=== PATIENT | female | born 1980 | race Caucasian/White ===

== ENCOUNTER 2020-10-29 11:47 | Emergency (ER) | payer OTHER ==
[~2020-10-29] VITALS: Ht 162.6 cm; Wt 90.7 kg
--- NOTE | 2020-10-29 12:25 | NUR ---
SALINE LOCK ESTABLISHED, BLOOD DRAWN AND PICKED UP BY LAB
[2020-10-29] MEDS ORDERED: CYCL5TAB PO (12:27)
[2020-10-29] MEDS ORDERED: TOPI200T PO (12:27)
[2020-10-29] MEDS ORDERED: SPIR50TA PO (12:27)
[2020-10-29] MEDS ORDERED: TRAM50TA2 PO (12:27)
[2020-10-29] MEDS ORDERED: GABA600T12 PO (12:27)
[2020-10-29] MEDS ORDERED: TRAZ-257 PO (12:27)
[2020-10-29] MEDS ORDERED: ONDA4TAB5 PO (12:27)
[2020-10-29] MEDS ORDERED: PROCHLORPERAZINE EDISYLATE 10 MG/2 ML VIAL ONE (12:33)
[2020-10-29] MEDS ORDERED: diphenhydrAMINE HCL 50 MG/ML VIAL ONE ×2 (12:33→13:14)
[2020-10-29 12:36] LABS: BASOPHILS # (AUTO) 0.1 K/uL (0.0-0.2); EOSINOPHILS % (AUTO) 1.2 % (0.0-6.0); HEMATOCRIT 41 % (33-45); HEMOGLOBIN 13.3 g/dL (11.5-14.8); LYMPHOCYTES # (AUTO) 2.4 K/uL (0.8-4.8); LYMPHOCYTES % (AUTO) 26.2 % (20.0-44.0); MEAN CORPUSCULAR HGB CONC 33 g/dl (31.0-36.0); MEAN CORPUSCULAR VOLUME 89 fL (82-100); MONOCYTES # (AUTO) 0.5 K/uL (0.1-1.30); MONOCYTES % (AUTO) 5.5 % (2.0-12.0); NEUTROPHILS # (AUTO) 6.1 K/uL (1.8-8.9); NEUTROPHILS % (AUTO) 66.1 % (43.0-81.0); PLATELET COUNT (AUTO) 243 K/uL (150-450); RED BLOOD CELL COUNT(AUTO) 4.56 MIL/uL (4.0-5.2); WHITE BLOOD COUNT (AUTO) 9.2 K/uL (4.3-11.0)
[2020-10-29] MEDS: IV NS 0.9% 1,000 ML BAG IV ONE (12:37)
[2020-10-29] MEDS: diphenhydrAMINE HCL 50 MG/ML VIAL IV ONE ×2 (12:37→13:19)
[2020-10-29] MEDS: PROCHLORPERAZINE EDISYLATE 10 MG/2 ML VIAL IVP ONE (12:38)
--- NOTE | 2020-10-29 12:41 | NUR ---
URINE COLLECTED AND SENT TO LAB
--- NOTE | 2020-10-29 12:45 | NUR ---
MOVE SHEET SUBMITTED AND CALLED FOR TELE BED.
[2020-10-29 12:49] LABS: CREATININE 0.8 mg/dL (0.6-1.3); POTASSIUM 3.9 mmol/L (3.5-5.1)
[2020-10-29 12:55] LABS: BILIRUBIN,TOTAL 0.2 mg/dL (0.2-1.0); TOTAL PROTEIN, SERUM 7.7 g/dL (6.4-8.2)
[2020-10-29 13:01] LABS: BILIRUBIN,URINE Negative (NEGATIVE); COLOR,URINE YELLOW (YELLOW); LEUKOCYTE ESTERASE ,URINE Trace (NEGATIVE); NITRITE, URINE Negative (NEGATIVE); PH,URINE 7.5 (5.0-8.0); PROTEIN,URINE Negative (NEGATIVE); UGLUCOSE Negative (NEGATIVE); UROBILINOGEN,URINE 0.2 EU/dL (0.2)
[2020-10-29 13:02] LABS: RBC,URINE 0-2 /HPF (0-2); WBC,URINE 0-2 /HPF (0-3)
[2020-10-29 13:03] LABS: BACTERIA,URINE Rare /HPF (None Seen); SQUAMOUS EPITHELIAL CELL,UR Few /HPF (None Seen)
[2020-10-29] MEDS ORDERED: KETOROLAC TROMETHAMINE 15 MG/ML VIAL ONE (13:04)
[2020-10-29] MEDS ORDERED: METOCLOPRAMIDE HCL 10 MG/2 ML VIAL ONE (13:12)
[2020-10-29] MEDS: METOCLOPRAMIDE HCL 10 MG/2 ML VIAL IV ONE (13:19)
[2020-10-29] MEDS: KETOROLAC TROMETHAMINE INJ 30 MG/ML VIAL IV ONE (13:19)
--- NOTE | 2020-10-29 13:33 | NUR ---
CONTACTED [employer] ABOUT PT BEING DISCHARGED.
--- NOTE | 2020-10-29 14:03 | NUR ---
IV removed. Catheter intact and site benign. Pressure and 4x4 applied to site. No bleeding noted.
--- NOTE | 2020-10-29 14:05 | NUR ---
Patient discharged to home in stable condition. Written and verbal after care instructions given. Patient verbalizes understanding of instruction.
[2020-10-29 14:10] VITALS: BP 127/105
== END 2020-10-29 14:10 | disposition home or self-care (01) ==
LOC: ER 11:53
DX: G43.909 Migraine, unspecified, not intractable, without status migrainosus (principal); R11.2 Nausea with vomiting, unspecified; Z79.899 Other long term (current) drug therapy
CPT/HCPCS: 36415; 80048; 80076; 81001; 84703; 85025; 85652; 85730; 96361; 96374; 96375; 96376; 99284; J0780; J1200 ×2; J1885; J2765; J7030

== ENCOUNTER 2021-06-16 12:42 | Emergency (ER) | payer OTHER ==
[~2021-06-16] VITALS: Ht 162.6 cm; Wt 86.2 kg
[~2021-06-16 12:42] MED LIST: CYCL5TAB PO; GABA600T12 PO; ONDA4TAB5 PO; SPIR50TA PO; TOPI200T PO; TRAM50TA2 PO; TRAZ-257 PO
[2021-06-16 12:51] VITALS: BP 173/110
[2021-06-16] MEDS ORDERED: predniSONE 20 MG TABLET ONE (13:13)
[2021-06-16] MEDS ORDERED: predniSONE 50 MG TABLET PO ONE (13:30)
[2021-06-16] MEDS ORDERED: LORATADINE 10 MG TABLET PO SCH (13:30)
[2021-06-16] MEDS ORDERED: PRED20TA PO (13:41)
--- NOTE | 2021-06-16 13:51 | NUR ---
Patient discharged to home in stable condition. Written and verbal after care instructions given. Patient verbalizes understanding of instruction.
== END 2021-06-16 13:51 | disposition home or self-care (01) ==
LOC: ER 12:48
DX: T63.441A Toxic effect of venom of bees, accidental (unintentional), initial encounter (principal); F41.9 Anxiety disorder, unspecified; G43.909 Migraine, unspecified, not intractable, without status migrainosus; M79.7 Fibromyalgia; Z91.09 Other allergy status, other than to drugs and biological substances; Y92.89 Other specified places as the place of occurrence of the external cause
CPT/HCPCS: 99284; J7512